=== PATIENT | female | born 1980 | race Caucasian/White ===

== ENCOUNTER 2017-08-19 17:10 | Emergency (ER) | payer SELFPAY ==
--- NOTE | 2017-08-19 17:40 | PDOC ---
History of Present Illness - General History Source: Patient Exam Limitations: No Limitations - History of Present Illness Initial Comments: 08/19/17 19:02 The patient is a 36 year old female with a significant PMH of anxiety who presents to the emergency department with a head laceration acquired yesterday evening. The patient reports that she was at home yesterday when she slipped and fell on her bathroom step. The patient reports that she does not recall hitting her head. The patient states that when she fell she started to feel scared and dizzy. The patient reports that she got up off of the floor afterwards. She reports that when she went to bed she was unable to sleep. The patient reports chest pain at tie of exam. She also reports that she feels dizzy. The patient denies any drugs or alcohol consumption yesterday. She denies any LOC, or headache. She denies any shortness of breath. The patient denies any fever, chills, nausea, vomit, diarrhea ,constipation or urinary symptoms. The patient denies any other complaints. <Jazmyn Mike - Last Filed: 08/19/17 19:02> <Monique Martin - Last Filed: 08/20/17 07:47> - General Chief Complaint: Laceration Stated Complaint: FELL, HEAD LACERATION Time Seen by Provider: 08/19/17 17:38 Past History <Jazmyn Mike - Last Filed: 08/19/17 19:02> - Past Medical History Psychiatric Problems: Yes (anxiety disorder, for which she was hospitalized a year ago) - Suicide/Smoking/Psychosocial Hx Smoking Status: Yes Smoking History: Current every day smoker Have you smoked in the past 12 months: Yes Number of Cigarettes Smoked Daily: 10 Hx Alcohol Use: No Drug/Substance Use Hx: No Substance Use Type: None <Monique Martin - Last Filed: 08/20/17 07:47> - Past Medical History Allergies/Adverse Reactions: Allergies Allergy/AdvReac Type Severity Reaction Status Date / Time No Known Allergies Allergy Verified 08/19/17 17:31 Home Medications: Ambulatory Orders NK [No Known Home Medication] 08/19/17 Review of Systems - Review of Systems Able to Perform ROS?: Yes Comments:: 08/19/17 19:02 GENERAL/CONSTITUTIONAL: (+) head laceration. No fever or chills. No weakness. HEAD, EYES, EARS, NOSE AND THROAT: No change in vision. No ear pain or discharge. No sore throat. CARDIOVASCULAR: (+) chest pain.No shortness of breath. RESPIRATORY: No cough, wheezing, or hemoptysis. GASTROINTESTINAL: No nausea, vomiting, diarrhea or constipation. GENITOURINARY: No dysuria, frequency, or change in urination. MUSCULOSKELETAL: No joint or muscle swelling or pain. No neck or back pain. SKIN: No rash NEUROLOGIC: (+)dizzy. No headache, vertigo, loss of consciousness, or change in strength/sensation. ENDOCRINE: No increased thirst. No abnormal weight change. HEMATOLOGIC/LYMPHATIC: No anemia, easy bleeding, or history of blood clots. ALLERGIC/IMMUNOLOGIC: No hives or skin allergy. <Jazmyn Mike - Last Filed: 08/19/17 19:02> *Physical Exam - Vital Signs Last Vital Signs Temp Pulse Resp BP Pulse Ox 98.9 F 103 H 18 128/97 98 08/19/17 17:28 08/19/17 17:28 08/19/17 17:28 08/19/17 17:28 08/19/17 17:28 - Physical Exam Comments: 08/19/17 19:02 GENERAL: Awake, alert, and fully oriented X3, in no acute distress HEAD: (+)1 cm laceration over left eyebrow EYES: PERRLA, EOMI, sclera anicteric, conjunctiva clear ENT: Auricles normal inspection, hearing grossly normal, nares patent, oropharynx clear without exudates. Moist mucosa NECK: No spinous tenderness Normal ROM, supple, no lymphadenopathy, JVD, or masses LUNGS: Breath sounds equal, clear to auscultation bilaterally. No wheezes, and no crackles HEART: Regular rate and rhythm, normal S1 and S2, no murmurs, rubs or gallops ABDOMEN: Soft, nontender, normoactive bowel sounds. No guarding, no rebound. No masses EXTREMITIES: Normal range of motion, no edema. No clubbing or cyanosis. No cords, erythema, or tenderness NEUROLOGICAL: (+)sleeping but, arousable to loud voice Cranial nerves II through XII grossly intact. Normal speech, normal gait SKIN: Warm, Dry, normal turgor, no rashes or lesions noted. <Jazmyn Mike - Last Filed: 08/19/17 19:02> ED Treatment Course - Medications Given in the ED: ED Medications Discontinued Medications Generic Name Dose Route Start Last Admin Trade Name Isabel PRN Reason Stop Dose Admin Acetaminophen 1,000 mg 08/19/17 17:49 08/19/17 18:00 Ofirmev Injection - IVPB 08/19/17 17:50 1,000 mg ONCE ONE Administration <Jazmyn Mike - Last Filed: 08/19/17 19:02> Medical Decision Making - Medical Decision Making 08/20/17 07:46 Pt presents to the ED complaining of headache and lightheadness after hitting her head last night. Also complaining of chest wall pain. Headache is most likely secondary to concussion, but will check CT head to rule out intracranial bleed. Will check CXR to rule out fractured rib. Will reassess. <Monique Martin - Last Filed: 08/20/17 07:47> *DC/Admit/Observation/Transfer - Attestations Scribe Attestion: 08/19/17 19:03 Documentation prepared by Jazmyn Mike, acting as medical administrative assistant for Monique Martin MD. <Jazmyn Mike - Last Filed: 08/19/17 19:02> <Monique Martin - Last Filed: 08/20/17 07:47> Diagnosis at time of Disposition: Forehead laceration, Chest wall contusion - Discharge Dispostion Disposition: HOME Condition at time of disposition: Stable - Patient Instructions Printed Discharge Instructions: DI for Contusion Additional Instructions: Keep head elevated tonight Cool compresses to area of chest wall pain for the next 2 days, then local warmth as needed Motrin/Aleve/acetaminophen as needed for chest wall pain Follow-up with your doctor within the next 3-4 days Return to ER if area around forehead cut becomes swollen/red/painful
[2017-08-19 17:44] VITALS: PULSE 103; TEMP 98.9; BMI 21.9
[2017-08-19] MEDS ORDERED: ACETAMINOPHEN 1000 MG/100 ML VIAL (NON FORMULARY) IVPB ONE (17:49)
[2017-08-19] MEDS ORDERED: ACETAMINOPHEN INJECTION 100 ML IVPB ONE (17:53)
--- NOTE | 2017-08-19 20:40 | PDOC ---
*Physical Exam - Vital Signs Last Vital Signs Temp Pulse Resp BP Pulse Ox 98.9 F 103 H 18 128/97 98 08/19/17 17:28 08/19/17 17:28 08/19/17 17:28 08/19/17 17:28 08/19/17 17:28 ED Treatment Course - Medications Given in the ED: ED Medications Discontinued Medications Generic Name Dose Route Start Last Admin Trade Name Isabel PRN Reason Stop Dose Admin Acetaminophen 1,000 mg 08/19/17 17:49 08/19/17 18:00 Ofirmev Injection - IVPB 08/19/17 17:50 1,000 mg ONCE ONE Administration Progress Note - Progress Note Progress Note: Care of this patient received from Dr. Martin. Patient refused to provide urine for PGU. Serum sent: Negative. Noncontrast head CT performed and interpreted by Imaging [facility] communications: Normal study without evidence of acute intracranial process. Patient complaining of bilateral upper chest pain. Area is mildly tender on palpation consistent with contusion/strain. Motrin 600 mg ordered. Patient will be discharged with follow-up with her general doctor. Meanwhile, she can put cool compresses on upper chest areas for the next few days, followed by local warmth. She can take nonsteroidal anti-inflammatory such as ibuprofen/naproxen or analgesic such as acetaminophen as needed. *DC/Admit/Observation/Transfer Diagnosis at time of Disposition: Forehead laceration Qualifiers: Encounter type: initial encounter Qualified Code(s): S01.81XA - Laceration without foreign body of other part of head, initial encounter Chest wall contusion Qualifiers: Encounter type: initial encounter Laterality: unspecified laterality Qualified Code(s): S20.219A - Contusion of unspecified front wall of thorax, initial encounter - Discharge Dispostion Disposition: HOME Condition at time of disposition: Stable - Referrals - Patient Instructions Printed Discharge Instructions: DI for Contusion Additional Instructions: Keep head elevated tonight Cool compresses to area of chest wall pain for the next 2 days, then local warmth as needed Motrin/Aleve/acetaminophen as needed for chest wall pain Follow-up with your doctor within the next 3-4 days Return to ER if area around forehead cut becomes swollen/red/painful - Post Discharge Activity
[2017-08-19 21:22] VITALS: BP 124/82
[2017-08-19] MEDS ORDERED: IBUPROFEN 600 MG TABLET (FP) PO ONE ×2 (23:21→23:27)
== END 2017-08-19 23:39 | disposition home or self-care (01) ==
LOC: FER 17:10
PROC: 3E033NZ Introduction of Analgesics, Hypnotics, Sedatives into Peripheral Vein, Percutaneous Approach (ICD-10-PCS; principal; 2017-08-19)
DX: S01.81XA Laceration without foreign body of other part of head, initial encounter (principal); S20.219A Contusion of unspecified front wall of thorax, initial encounter; F17.210 Nicotine dependence, cigarettes, uncomplicated; F41.9 Anxiety disorder, unspecified; W18.39XA Other fall on same level, initial encounter; Y93.89 Activity, other specified; Y92.9 Unspecified place or not applicable
CPT/HCPCS: 36415; 70450-TC; 71046-TC-FY; 84703; 99283-25; J0131

== ENCOUNTER 2017-10-06 19:52 | Emergency (ER) | payer SELFPAY ==
--- NOTE | 2017-10-06 19:58 | PDOC ---
History of Present Illness - General Chief Complaint: Respiratory Stated Complaint: COUGH Time Seen by Provider: 10/06/17 19:58 History Source: Patient Exam Limitations: No Limitations - History of Present Illness Initial Comments: 10/06/17 20:31 Ms Laguna is a 36 yo F with a h/o Anxiety, h/o tobacco use She presents to the ER with a complaint of 2 weeks of cough which she states is productive of yellow sputum She now feels like she has difficulty coughing up the mucous She has noted no blood tinging of the sputum She reports subjective fevers, no chills She has had bodyaches, nasal congestion, sinus pressure She also has had diarrhea, nausea No dysuria, no hematuria (+) Myalgias Past medical history: Dental caries, bronchitis recurrent related to cigarette smoking, Past surgical history: section Social history: Smoker, social EtOH, no drugs. No disability Family history: Noncontributory Medications: Advil Allergies: None ROS: GENERAL/CONSTITUTIONAL: Yes: subjective fever, chills HEAD, EYES, EARS, NOSE AND THROAT: No: change in vision, ear pain, discharge, sore throat, throat swelling. CARDIOVASCULAR: No: chest pain, lightheadedness, palpitations, syncope RESPIRATORY: Yes: productive cough No: shortness of breath, wheezing, hemoptysis , stridor. GASTROINTESTINAL: Yes: diarrhea, nausea No: abdominal GENITOURINARY: No: dysuria, hematuria, frequency, urgency, flank pain. MUSCULOSKELETAL: Yes: myalgias SKIN AND BREASTS: No: lesions, pallor, rash or easy bruising. NEUROLOGIC: No: headache PE: GENERAL: The patient is in no acute distress. HEAD: Normal EYES: PERRLA, EOMI, sclera anicteric, conjunctiva clear. ENT: Ears normal, nares patent, oropharynx clear without exudates. Moist mucous membranes. NECK: Normal range of motion, supple without meningismus LUNGS: Breath sounds equal, clear to auscultation bilaterally. No wheezes, and no crackles. HEART:Regular rate and rhythm, normal S1 and S2 without murmur, rub or gallop. ABDOMEN: Soft, nontender, normoactive bowel sounds. No guarding, no rebound. No masses palpable. EXTREMITIES: Normal range of motion, no edema. NEUROLOGICAL: Cranial nerves II through XII grossly intact. Normal speech. No focal neurological deficits. MUSCULOSKELETAL: Back non-tender to palpation, no CVA tenderness SKIN: Warm, Dry, normal turgor, no rashes or lesions noted. 10/07/17 01:51 10/07/17 01:54 Past History - Past Medical History Allergies/Adverse Reactions: Allergies Allergy/AdvReac Type Severity Reaction Status Date / Time No Known Allergies Allergy Verified 10/06/17 19:53 Home Medications: Ambulatory Orders Alprazolam [Xanax] mg PO ASDIR PRN 10/06/17 Azithromycin [Zithromax 250mg Tablets -] 250 mg PO UTDICT #6 tab 10/06/17 Benzonatate [Tessalon Pearls -] 100 mg PO TID PRN #21 capsule 10/06/17 Codeine Phosphate/Guaifenesin [Guaifenesin-Codeine Syrup] 10 ml PO HS PRN #100 liquid MDD 10 10/06/17 Dextroamphetamine/Amphetamine [Adderall 10 mg Tablet] 10 mg PO TID 10/06/17 Ferrous Sulfate [Iron] 325 mg PO DAILY 10/06/17 Guaifenesin [Mucinex -] 600 mg PO BID #14 tablet.er 10/06/17 Multivitamins [Tab-A-Vit -] 1 tab PO DAILY 10/06/17 COPD: No Psychiatric Problems: Yes (anxiety disorder, for which she was hospitalized a year ago) - Suicide/Smoking/Psychosocial Hx Smoking Status: Yes Smoking History: Current every day smoker Have you smoked in the past 12 months: Yes Number of Cigarettes Smoked Daily: 10 'Breaking Loose' booklet given: 08/19/17 Hx Alcohol Use: No Drug/Substance Use Hx: No Substance Use Type: None Medical Decision Making - Medical Decision Making 10/07/17 01:56 Pt was unable to wait in the ER for an x ray She wanted to got to the local pharmacy which closes at 9pm Given chronicity of symptoms, her history of tobacco use, will treat with Azithromycin Will also give mucinex given pt states secretions are thick Will give Guaifenasin with codeine for excessive coughing at night No wheezing to suggest need for albuterol Will not give prednisone (although, if cough does not improve, this should be considered) Pt asked to return for CXR if she has time/is able to Clinical Impression: Bronchitis, initial presentation *DC/Admit/Observation/Transfer Diagnosis at time of Disposition: Bronchitis - Discharge Dispostion Disposition: HOME Condition at time of disposition: Stable Decision to Admit order: No - Prescriptions Prescriptions: Azithromycin [Zithromax 250mg Tablets -] 250 mg PO UTDICT #6 tab Benzonatate [Tessalon Pearls -] 100 mg PO TID PRN #21 capsule PRN Reason: Cough Codeine Phosphate/Guaifenesin [Guaifenesin-Codeine Syrup] 10 ml PO HS PRN #100 liquid MDD 10 PRN Reason: severe cough Guaifenesin [Mucinex -] 600 mg PO BID #14 tablet.er - Referrals Referrals: Lopez Arriaga MD [Staff Physician] - - Patient Instructions Printed Discharge Instructions: DI for Acute Bronchitis Additional Instructions: Ms Laguna Thanks for coming in to the ER today You were not wheezing but given the length of time you have had a cough, I would like to start treatment Monitor yourself for fevers and chills Please rest, stay hydrated Please follow up with your primary care physician If you would like to have a chest x ray, please feel free to come back to the ER Also, you can come back to the ER for any other concern or complaint - Post Discharge Activity
[2017-10-06 20:02] VITALS: BP 116/82; PULSE 108; TEMP 97.4; BMI 20.3
== END 2017-10-06 21:01 | disposition home or self-care (01) ==
LOC: FER 19:52
DX: J20.9 Acute bronchitis, unspecified (principal); F17.210 Nicotine dependence, cigarettes, uncomplicated; F41.9 Anxiety disorder, unspecified
CPT/HCPCS: 99283-25

== ENCOUNTER 2017-11-11 22:02 | Emergency (ER) | payer SELFPAY ==
[2017-11-11 22:10] VITALS: BP 122/86; PULSE 110; TEMP 97.6; BMI 20.3
--- NOTE | 2017-11-11 22:29 | PDOC ---
History of Present Illness - General Chief Complaint: Pain Stated Complaint: TOOTHACHE - History of Present Illness Initial Comments: 36-year-old female without comorbidities presents for evaluation after eating a candy bar and cracking her tooth. 11/11/17 22:27 11/11/17 22:27 Past History - Past Medical History Allergies/Adverse Reactions: Allergies Allergy/AdvReac Type Severity Reaction Status Date / Time No Known Allergies Allergy Verified 11/11/17 22:06 Home Medications: Ambulatory Orders Alprazolam [Xanax] mg PO ASDIR PRN 10/06/17 Azithromycin [Zithromax 250mg Tablets -] 250 mg PO UTDICT #6 tab 10/06/17 Benzonatate [Tessalon Pearls -] 100 mg PO TID PRN #21 capsule 10/06/17 Codeine Phosphate/Guaifenesin [Guaifenesin-Codeine Syrup] 10 ml PO HS PRN #100 liquid MDD 10 10/06/17 Dextroamphetamine/Amphetamine [Adderall 10 mg Tablet] 10 mg PO TID 10/06/17 Ferrous Sulfate [Iron] 325 mg PO DAILY 10/06/17 Guaifenesin [Mucinex -] 600 mg PO BID #14 tablet.er 10/06/17 Multivitamins [Tab-A-Vit -] 1 tab PO DAILY 10/06/17 COPD: No Psychiatric Problems: Yes (anxiety disorder, for which she was hospitalized a year ago) - Suicide/Smoking/Psychosocial Hx Smoking Status: Yes Smoking History: Current every day smoker Have you smoked in the past 12 months: Yes Number of Cigarettes Smoked Daily: 10 Information on smoking cessation initiated: Yes 'Breaking Loose' booklet given: 11/11/17 Hx Alcohol Use: No Drug/Substance Use Hx: No Substance Use Type: None Review of Systems - Review of Systems HEENTM: Yes: See HPI, Mouth Pain All Other Systems: Reviewed and Negative *Physical Exam - Vital Signs Last Vital Signs Temp Pulse Resp BP Pulse Ox 97.6 F 110 H 20 122/86 100 11/11/17 22:06 11/11/17 22:06 11/11/17 22:06 11/11/17 22:06 11/11/17 22:06 - Physical Exam Comments: Pharynx normal uvula midline left rear molar is cracked. 11/11/17 22:28 Medical Decision Making - Medical Decision Making Advised patient on Tylenol and use of antibiotics as well as Motrin for pain she has walked out of the emergency room after requesting narcotics saying Tylenol and Motrin do not work for her 11/11/17 22:28 *DC/Admit/Observation/Transfer Diagnosis at time of Disposition: Tooth caries - Discharge Dispostion Disposition: ELOPED Condition at time of disposition: Stable Decision to Admit order: No - Referrals - Patient Instructions - Post Discharge Activity
== END 2017-11-11 22:28 | disposition left against medical advice (07) ==
LOC: JERFT 22:02
CPT/HCPCS: 99281-25

== ENCOUNTER 2018-04-27 19:15 | Emergency (ER) | payer OTHER ==
[2018-04-27 19:23] VITALS: BMI 26.6
[2018-04-27] MEDS ORDERED: SODIUM CHLORIDE 1,000 ML IV STA (19:43)
[2018-04-27] MEDS ORDERED: ALBUTEROL SO4 2.5/IPRATROPIUM 0.5 INH SOL 3 ML VIAL.NEB. NEB ONE ×2 (19:43→20:10)
--- NOTE | 2018-04-27 20:18 | PDOC ---
History of Present Illness - General Chief Complaint: Cold Symptoms Stated Complaint: flu like symptoms Time Seen by Provider: 04/27/18 19:21 - History of Present Illness Initial Comments: 04/27/18 20:17 The patient is a 37 year old female, with no significant PMH, who presents to the emergency department today, accompanied by police, complaining of a progressive productive cough, subjective fevers, dyspnea on exertion and diaphoresis for 3 weeks. She reports her cough is "frothy." The patient states she feels chest congestion, which has made it hard for her to breath. She reports her breathing is exacerbated with exertion and talking. Pt reports walking to her car makes her very SOB. Patient notes taking over the counter cold and flu medications with little relief. Pt denies recent drug use, states she has used drugs in the past, but not in the last few years. Denies receiving flu shot. Denies cardiac history. Pt is currently under arrest for violating an order of protection. The patient denies headache and dizziness. Denies nausea, vomit, diarrhea and constipation. Denies dysuria, frequency, urgency and hematuria. Allergies: NKA Social history: Occasional smoker, history of illicit drug use Past History - Past Medical History Allergies/Adverse Reactions: Allergies Allergy/AdvReac Type Severity Reaction Status Date / Time No Known Allergies Allergy Verified 11/11/17 22:06 Home Medications: Ambulatory Orders NK [No Known Home Medication] 04/27/18 COPD: No Psychiatric Problems: Yes (anxiety disorder, for which she was hospitalized a year ago) - Suicide/Smoking/Psychosocial Hx Smoking Status: Yes Smoking History: Unknown if ever smoked Have you smoked in the past 12 months: Yes Number of Cigarettes Smoked Daily: 10 Information on smoking cessation initiated: Yes 'Breaking Loose' booklet given: 11/11/17 Hx Alcohol Use: No Drug/Substance Use Hx: No Substance Use Type: None Review of Systems - Review of Systems Comments:: 04/28/18 00:22 GENERAL/CONSTITUTIONAL: (+)Subjective fever. (+) Diaphoresis HEAD, EYES, EARS, NOSE AND THROAT: No change in vision. No ear pain or discharge. GASTROINTESTINAL: No nausea, vomiting, diarrhea or constipation. GENITOURINARY: No dysuria, frequency, or change in urination. CARDIOVASCULAR: No chest pain. RESPIRATORY: (+) productive cough. (+) shortness of breath. (+) chest congestion. No hemoptysis. MUSCULOSKELETAL: No joint or muscle swelling or pain. No neck or back pain. SKIN: No rash NEUROLOGIC: No headache, vertigo, loss of consciousness, or change in strength/ sensation. ENDOCRINE: No increased thirst. No abnormal weight change. HEMATOLOGIC/LYMPHATIC: No anemia, easy bleeding, or history of blood clots. ALLERGIC/IMMUNOLOGIC: No hives or skin allergy. *Physical Exam - Vital Signs Last Vital Signs Temp Pulse Resp BP Pulse Ox 98.3 F 114 H 20 143/94 98 04/27/18 19:20 04/27/18 19:20 04/27/18 19:20 04/27/18 19:20 04/27/18 19:20 - Physical Exam Comments: 04/28/18 00:22 GENERAL: Awake, alert, and fully oriented. Speaking in 4-5 word sentences. HEAD: No signs of trauma EYES: PERRLA, EOMI, sclera anicteric, conjunctiva clear ENT: Nares patent, oropharynx clear without erythema or exudates. Uvual midline. Moist mucosa NECK: Normal ROM, supple, no lymphadenopathy, JVD, or masses LUNGS: course BS on the right. Diffuse mild exp wheezing. HEART: Tachycardic to 118 but regular, normal S1 and S2, no murmurs, rubs or gallops ABDOMEN: Soft, nontender, normoactive bowel sounds. No guarding, no rebound. No masses. EXTREMITIES: Normal range of motion, no edema. No cords, erythema, or tenderness NEUROLOGICAL: Normal speech, cranial nerves intact, equal strength and sensation b/l SKIN: Warm, Dry, normal turgor, no rashes or lesions noted. +stretch lazo on abdomen Moderate Sedation - Procedure Monitoring Vital Signs: Procedure Monitoring Vital Signs Temperature 98.3 F 04/27/18 19:20 Pulse Rate 114 H 04/27/18 19:20 Respiratory Rate 20 04/27/18 19:20 Blood Pressure 143/94 04/27/18 19:20 O2 Sat by Pulse Oximetry (%) 98 04/27/18 19:20 ED Treatment Course - LABORATORY CBC & Chemistry Diagram: 04/27/18 20:05 04/27/18 20:05 - RADIOLOGY Radiology Studies Ordered: Category Date Time Status CHEST X-RAY PORTABLE* [RAD] Stat Radiology 04/27/18 19:41 Taken - Medications Given in the ED: ED Medications Discontinued Medications Generic Name Dose Route Start Last Admin Trade Name Isabel PRN Reason Stop Dose Admin Albuterol/Ipratropium 1 amp 04/27/18 19:43 04/27/18 20:12 Duoneb - NEB 04/27/18 19:44 1 amp ONCE ONE Administration Medical Decision Making - Critical Care Time Total Critical Care Time (minutes): 240 Critical Care Statement: The care of this patient involved high complexity decision making to prevent further life threatening deterioration of the patient 's condition and/or to evaluate & treat vital organ system(s) failure or risk of failure. - Medical Decision Making 04/27/18 20:16 37yo F currently in police custody with no significant PMH presents to the ED with 3 weeks of productive cough, GHOTRA, chest congestion, and subjective fevers. Vitals significant for tachycardia to 117. Exam with non toxic appearing pt in mild resp distress, with mild diffuse wheezing, tachycardic but regular rhythm. DDx includes viral syndrome +/- bronchitis vs PNA vs PE vs CHF. Plan: -labs including dimer -CXR -nebs -reassess 04/27/18 22:26 No improvement with nebs Flu swab neg Serum preg neg CBC with no white count, no anemia CMP with mildly elevated AST and alk phos, as well as hypoalbuminemia Trop neg CXR with clear lungs, however possible cardiomegaly? Discussed with radiology, could be due to portable but still appears large Dimer+ to 1700 CTA chest ordered 04/28/18 00:29 CTA chest with no PE however reveals cardiomegaly with small pericardial effusion, +vascular congestion, hepatomegaly. Possible CHF? In addition, pt has RUL, RLL, and lingular infiltrates c/f possible PNA vs sarcoidosis (hilar LAD also noted on CTA) In light of previous incarceration and weeks of respiratory issues with subjective fevers, sweats, TB considered on ddx Quantiferon test ordered, pt placed in negative pressure room ID has been consulted for further recs Pt covered with ceftriaxone/azithro for possible CAP Ordered BNP, 2nd trop, blood cx, utox Pt declines HIV test Pt has been ROR and is no longer in police custody 04/28/18 00:[address] Martino, accepted for admission tele inpt. 04/28/18 02:18 Pt now tachycardic to 130s EKG with sinus tachycardia rate 132 with LAD, RBBB BNP 38149 -> lasix 20mg ordered Rpt trop 0.33 -> asa 325mg Pt tachypneic to 30s, being put on bipap at this time Will now transfer pt to telemetry at [facility] 04/28/18 02:46 Pt refusing bipap or nasal cannula States it is suffocating her Currently HR 128, RR 28, O2 sat 100% RA, pt in less distress while positioned upright BP 98/70 Will hold off on bipap At this time, concern for acute heart failure vs takatsubo No ICU beds at [facility] however pt may be better served in a tertiary care center CCU Case discussed with Dr. Holguin, agrees that pt should be transferred to CCU Will reach out to [facility] CCU 04/28/18 03:08 On hold for [facility] CCU fellow 04/28/18 03:12 CCU fellow in procedure and can not talk Transfer center will call us back 04/28/18 03:30 Case discussed with CCU Attending Dr. Fierro, pt accepted for transfer Pt consents for transfer, signed paperwork Face sheet faxed 04/28/18 05:29 PT transported to [facility] CCU w stable vitals *DC/Admit/Observation/Transfer Diagnosis at time of Disposition: Acute heart failure, GHOTRA (dyspnea on exertion), PNA (pneumonia) - Discharge Dispostion Disposition: TRANSFER ACUTE CARE/OTHER HOSP Condition at time of disposition: Stable - Referrals - Patient Instructions - Post Discharge Activity - Transfer to Acute Care Facility Receiving Facility: [facility] - Attestations Physician Attestion: 04/28/18 04:27 I, Dr. Ritesh Luciano MD, attest that this document has been prepared under my direction and personally reviewed by me in its entirety. I further attest, that it accurately reflects all work, treatment, procedures and medical decision -making performed by me.
[2018-04-27 20:22] LABS: BASO % 0.6 % (0-2.0); EOS % 0.2 % (0-4.5); HEMATOCRIT 42.8 % (32.4-45.2); HEMOGLOBIN 13.5 GM/dl (10.7-15.3); LYMPH % 17.5 % (8-40); MCH 28.3 pg (25.7-33.7); MCHC 31.6 g/dl (32.0-36.0); MEAN CELL VOLUME 89.4 fl (80-96); MEAN PLT VOLUME 7.9 fl (7.5-11.1); MONO % 5.5 % (3.8-10.2); NEUT % 76.2 % (42.8-82.8); PLATELET COUNT 488 K/MM3 (134-434); RBC 4.78 M/mm3 (3.60-5.2); RDW 15.4 % (11.6-15.6); WHITE BLOOD COUNT 8.1 K/mm3 (4.0-10.8)
[2018-04-27 20:34] LABS: ALBUMIN 2.7 g/dl (3.4-5.0); ALK PHOS 168 U/L (45-117); ANION GAP 9 MMOL/L (8-16); BILIRUBIN,TOTAL 0.8 mg/dl (0.2-1); BLOOD UREA NITROGEN 8 mg/dl (7-18); CALCIUM 8.1 mg/dl (8.5-10); CHLORIDE 100 mmol/L (98-107); CO2 24 mmol/L (21-32); CREATININE 0.7 mg/dl (0.55-1.3); GLUCOSE,RANDOM 116 mg/dl (74-106); POTASSIUM 4.6 mmol/L (3.5-5.1); SGOT/AST 57 U/L (15-37); SGPT/ALT 55 U/L (13-61); SODIUM 133 mmol/L (136-145); TOT PROT 6.3 g/dl (6.4-8.2)
[2018-04-27] MEDS ORDERED: guaiFENesin 200 MG/10 ML 10 ML UNIT-DOSE CUPS PO ONE (21:30)
[2018-04-27] MEDS ORDERED: guaiFENesin/D-METHORPHAN HB 10 ML UNIT-DOSE CUPS ONE (21:30)
[2018-04-28] MEDS ORDERED: CEFTRIAXONE 1,000 MG in DEXTROSE 5%-WATER - 50 ML IVPB ONE (00:09)
[2018-04-28] MEDS ORDERED: AZITHROMYCIN IVPB 500 MG in DEXTROSE 5%-WATER - 250 ML IVPB ONE (00:10)
[2018-04-28] MEDS ORDERED: cefTRIAXone SODIUM 1 GM VIAL ONE (00:38)
[2018-04-28] MEDS ORDERED: AZITHROMYCIN 500 MG VIAL IVPB ONE (00:38)
[2018-04-28] MEDS ORDERED: FUROSEMIDE 40 MG/4 ML INJECTABLE VIAL ONE (01:59)
[2018-04-28] MEDS ORDERED: FUROSEMIDE 40 MG/4 ML INJECTABLE VIAL IVPUSH ONE (02:10)
[2018-04-28] MEDS ORDERED: ASPIRIN 325 MG TABLET PO ONE (02:10)
[2018-04-28] MEDS ORDERED: ASPIRIN 325 MG TABLET ONE (02:22)
[2018-04-28 02:25] LABS: URINE APPEARANCE CLEAR; URINE BILIRUBIN NEGATIVE (<2.0 mg/dL); URINE COLOR STRAW; URINE GLUCOSE (UA) NEGATIVE (NEGATIVE); URINE KETONE NEGATIVE (NEGATIVE); URINE LEUK ESTERASE NEGATIVE (NEGATIVE); URINE NITRITE NEGATIVE (NEGATIVE); URINE PROTEIN NEGATIVE (NEGATIVE); URINE UROBILINOGEN NEGATIVE mg/dL (0.2-1.0)
[2018-04-28 02:41] VITALS: TEMP 97.8
[2018-04-28 02:45] LABS: COCAINE, UR NEGATIVE ng/ml (CUTOFF=300); METHADONE, UR NEGATIVE ng/ml (CUTOFF=300); OPIATES, URI NEGATIVE ng/ml (CUTOFF=300); PHENCYCLIDINE,URINE NEGATIVE ng/ml (CUTOFF=25); URINE AMPHETAMINES NEGATIVE ng/ml (CUTOFF=500); URINE BARBITURATES NEGATIVE ng/ml (CUTOFF=200); URINE BENZODIAZEPINES NEGATIVE ng/ml (CUTOFF=200)
[2018-04-28 04:06] VITALS: BP 107/92; PULSE 110
--- NOTE | 2018-04-28 14:43 | EKG ---
Test Reason : Blood Pressure : / mmHG Vent. Rate : 132 BPM Atrial Rate : 132 BPM P-R Int : 130 ms QRS Dur : 128 ms QT Int : 326 ms P-R-T Axes : 056 -48 045 degrees QTc Int : 483 ms SINUS TACHYCARDIA BIATRIAL ENLARGEMENT LEFT AXIS DEVIATION RIGHT BUNDLE BRANCH BLOCK ANTEROLATERAL INFARCT , AGE UNDETERMINED ABNORMAL ECG NO PREVIOUS ECGS AVAILABLE Confirmed by Cullen Holguin MD ([id number]) on 04/28/2018 2:43:15 PM Referred By: MD ACOSTA Confirmed By:Cullen Holguin MD
== END 2018-04-28 05:47 | disposition short-term general hospital (02) ==
LOC: FER 19:15 → UNDOADMIN 04-28 01:15 → FM/S 04-28 01:15 → UNDODISIN 04-28 05:45
PROC: 3E0F7GC Introduction of Other Therapeutic Substance into Respiratory Tract, Via Natural or Artificial Opening (ICD-10-PCS; principal; 2018-04-27)
PROC: 3E03329 Introduction of Other Anti-infective into Peripheral Vein, Percutaneous Approach (ICD-10-PCS; 2018-04-27)
PROC: 3E033GC Introduction of Other Therapeutic Substance into Peripheral Vein, Percutaneous Approach (ICD-10-PCS; 2018-04-27)
PROC: 3E0337Z Introduction of Electrolytic and Water Balance Substance into Peripheral Vein, Percutaneous Approach (ICD-10-PCS; 2018-04-27)
DX: J18.9 Pneumonia, unspecified organism (principal); R06.00 Dyspnea, unspecified; I50.9 Heart failure, unspecified
CPT/HCPCS: 36415; 71045-TC-FY; 71275-TC; 80053; 80307; 81003; 83880; 84484; 84703; 85025; 85379; 87040; 87086; 87804; 93005; 99284-25; J7030

== ENCOUNTER 2021-12-20 16:25 | Emergency (ER) | payer OTHER ==
[2021-12-20 16:45] VITALS: BP 134/90; PULSE 91; RESP 20; BMI 27.6
[2021-12-20] MEDS ORDERED: ACETAMINOPHEN WITH CODEINE 300MG/30MG TABLET PO ONE (17:42)
[2021-12-20] MEDS ORDERED: ACETAMINOPHEN WITH CODEINE 300MG/30MG TABLET ONE (17:58)
== END 2021-12-20 19:25 | disposition home or self-care (01) ==
LOC: JERFT 16:25 → JER 16:25 → JERFT 19:25
DX: K04.7 Periapical abscess without sinus (principal)
CPT/HCPCS: 99283-25

== ENCOUNTER 2023-07-28 20:04 | Emergency (ER) | payer OTHER ==
[2023-07-28 20:33] VITALS: BP 143/85; PULSE 98; RESP 18; TEMP 97.8; BMI 28.3
== END 2023-07-28 21:10 | disposition home or self-care (01) ==
LOC: FER 20:04
DX: S80.02XA Contusion of left knee, initial encounter (principal); W18.39XA Other fall on same level, initial encounter
CPT/HCPCS: 99282-25